=== PATIENT | male | born 2000 | race Caucasian/White ===

== ENCOUNTER 2023-05-20 14:25 | Outpatient (OUT) | payer OTHER, SELFPAY ==
[2023-05-20 15:00] LABS: Basophils Percent Auto 0.6 % (0.2-2.0); Eosinophils Absolute Auto 0.2 10^3/uL (0.0-0.7); Hematocrit 42.9 % (42.0-54.0); Immature Granulocytes Abs Auto 0.02 10^3/uL (0.00-0.03); Immature Granulocytes Pct Auto 0.3 % (0.0-0.5); Lymphocytes Absolute Auto 2.6 10^3/uL (1.2-3.8); Lymphocytes Percent Auto 40.5 % (20.5-60.0); Mean Corpuscular Hemoglobin 30.7 pg (25.9-34.0); Mean Corpuscular Volume 87.9 fL (80.0-94.0); Mean Platelet Volume 9.8 fL (9.5-13.5); Monocytes Absolute Auto 0.5 10^3/uL (0.3-0.8); Monocytes Percent Auto 7.7 % (1.7-12.0); Neutrophils Percent Auto 47.9 % (43.0-75.0); Platelet Count 193 10^3/uL (150-450); Red Blood Count 4.88 10^6/uL (4.70-6.10); Red Cell Distribution Width 11.9 % (11.0-15.0); White Blood Count 6.3 10^3/uL (4.0-11.0)
--- NOTE | 2023-05-20 15:01 | P.GSHP_ITS ---
History of Present Illness History of Present Illness Chief complaint: Chronic Sinusitis Narrative: Patient presents for preadmission testing. The patient states he's had multiple episodes of sinus infections and chronic Headache and congestion. He denies fever, cough, nausea, vomiting, difficulty swallowing, or any other complaints. Review of Systems ROS Narrative REVIEW OF SYSTEMS: Negative except as stated in HPI, ten or more systems reviewed. Constitutional: No fever , chills, weakness ENT: No sore throat or epistaxis Cardiovascular: No edema, chest pain, palpitations, or activity intolerance Respiratory: No shortness of breath, cough, or wheezing Musculoskeletal: No joint pain or swelling Gastrointestinal: No abdominal pain, constipation, diarrhea, or vomiting Genitourinary: No dysuria or hematuria Neurological: No numbness, tingling, weakness, or headache Psychiatric: No mood changes PFSH PFSH Medical History (Updated 05/20/23 @ 14:47 by Marion Castillo NP) Anxiety ?F41.9 - Anxiety disorder, unspecified (ICD-10) Chronic sinusitis ?J32.9 - Chronic sinusitis, unspecified (ICD-10) Depression ?F32.A - Depression, unspecified (ICD-10) Headache ?R51.9 - Headache, unspecified (ICD-10) Low testosterone ?R79.89 - Other specified abnormal findings of blood chemistry (ICD-10) Pneumonia ?J18.9 - Pneumonia, unspecified organism (ICD-10) Seasonal allergies ?J30.2 - Other seasonal allergic rhinitis (ICD-10) Surgical History (Updated 05/20/23 @ 14:47 by Marion Castillo NP) History of myringotomy ?Z98.890 - Other specified postprocedural states (ICD-10) History of tonsillectomy and adenoidectomy ?Z90.89 - Acquired absence of other organs (ICD-10) History of wisdom tooth extraction ?K08.409 - Partial loss of teeth, unspecified cause, unspecified class (ICD- 10) Family History (Updated 05/20/23 @ 14:47 by Marion Castillo NP) Other Family history of bone cancer Family history of diabetes mellitus Family history of hypertension Social History (Updated 05/20/23 @ 14:44 by Marion Castillo NP) Within the past year, how often did you have a drink containing alcohol: 2-3 times a week Smoking status: Never smoker Non-prescribed substance use: denies use 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 Highest level of school completed/degree received: Associate degree: academic program Meds Home Medications and Allergies Home Medications Medication Instructions Recorded Confirmed Type sertraline 150 mg capsule 150 mg PO DAILY 05/20/23 05/20/23 History Allergies Allergy/AdvReac Type Severity Reaction Status Date / Time No Known Drug Allergies Allergy Verified 05/20/23 14:42 Exam Narrative Exam Narrative: Constitutional: Awake, alert, comfortable, well-appearing, nontoxic, interactive, vital signs as charted Head: Normocephalic, atraumatic Eyes: Conjunctiva and lids normal to inspection, pupils normal ENT: Tympanic membranes pearly guillen, nonerythematous, noninjected, naris patent, posterior oropharynx clear, oral mucosa moist Neck: Supple, normal appearance, normal range of motion, no meningeal signs, no lymphadenopathy Respiratory: No respiratory distress, breath sounds clear Cardiovascular: Regular rate and rhythm, strong and regular heart tones Musculoskeletal: Normal gait, no swelling or edema Skin: No rashes or induration, no lesions, only visible skin inspected Neuro: No neurological deficits, normal sensation Psychiatric: Oriented ?3, normal affect Assessment and Plan Assessment and Plan (1) Chronic sinusitis: Plan Left middle meatus antrostomy scheduled with Dr. Grissom 06/04/2023.
[2023-05-20 15:20] LABS: INR 1.03; Partial Thromboplastin Time 29.1 sec (22.3-36.2); Prothrombin Time 10.9 sec (9.0-11.6)
== END 2023-05-20 14:26 | disposition home or self-care (01) ==
LOC: PST 14:27
PROVIDERS: PCP Family Medicine; Visit Provider Otolaryngology
DX: J32.0 Chronic maxillary sinusitis (principal); Z01.812 Encounter for preprocedural laboratory examination
CPT/HCPCS: 85025; 85610; 85730; G0463

== ENCOUNTER 2023-06-04 06:31 | Day surgery (SDC) | payer OTHER, SELFPAY ==
[2023-05-20 14:56] VITALS: BP 131/85; PULSE 74; RESP 16; TEMP 36.3; O2SAT 97; BMI 34.6
[2023-06-04] VITALS (19 sets, daily range): BP systolic 143–168; BP diastolic 96–113; PULSE 62–83; RESP 9–18; TEMP 36.5; O2SAT 96–100; BMI 33.8
--- NOTE | 2023-06-04 | OP_ITS ---
OPERATION DATE: ??06/04/2023 PRIMARY CARE PHYSICIAN:? Sarika Emery M.D. SURGEON:? Guillermina Grissom M.D. PREOPERATIVE DIAGNOSIS:?? Chronic left maxillary sinusitis. POSTOPERATIVE DIAGNOSIS:? Chronic left maxillary sinusitis. PROCEDURE:? Left maxillary antrostomy. ANESTHESIA:? General endotracheal. COMPLICATIONS:? None. FINDINGS:? Large left accessory in the sinus ostium and mucoid fluid filled left maxillary sinus. INDICATIONS:? This 22-year-old man presented with chronic sinusitis, unresponsive to aggressive medical management. PROCEDURE:? Patient identified in the holding area and taken to the OR where he was placed in the supine position.? After induction of general endotracheal anesthesia, the table was turned, the head elevated 20 degrees, and the face draped in a sterile fashion.? Afrin soaked pledgets were placed in the left nose and after waiting adequate time for decongestion, the nose was copiously irrigated.? The left nose was then approached with the nasal endoscope and lidocaine 1% with 1:100,000 epinephrine injected into the lateral nasal wall, and the Afrin was replaced.? After waiting adequate time for hemostasis, the Afrin pledgets were removed.? A curved scissor to the right was used to incise the lower portion of the middle turbinate, and the patient was then found to have a large accessory maxillary sinus ostium.? Using back biting and side biting forceps, the accessory ostium was opened anteriorly to include the natural ostium of the maxillary sinus.? The posterior root of the middle turbinate was then prophylactically cauterize to minimize the risk of postoperative bleeding, and the patient was awakened and taken to the recovery room in good condition. ISSAC
[2023-06-04] MEDS: LACTATED RINGER'S SOLUTION 1,000 ML 50 ML IV (06:56)
[2023-06-04] MEDS: LIDOCAINE HCL 1%-EPINEPHRINE 1:100,000 20 ML MDV INJ (08:00)
--- NOTE | 2023-06-04 08:45 | PC.NURSE ---
Delfino at [facility] administering blood pressure medications and monitoring patient with elevated blood pressure. presidex and lopressor given by edlfino macdonald at bedside in pacu
--- NOTE | 2023-06-04 08:59 | PC.NURSE ---
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 will continue to monitor blood pres for another 1/2 hour.
--- NOTE | 2023-06-04 09:07 | PC.NURSE ---
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 PATIENT IS RESTING COMFORTABLE AT THIS TIME.
== END 2023-06-04 10:07 | disposition home or self-care (01) ==
PROVIDERS: PCP Family Medicine; Visit Provider Otolaryngology
PROC: (CPT 160; principal; 2023-06-04 07:30)
DX: J32.0 Chronic maxillary sinusitis (principal); F41.9 Anxiety disorder, unspecified; F32.A Depression, unspecified; Z87.01 Personal history of pneumonia (recurrent)
CPT/HCPCS: 31267; 36415; 88305; 88311; J2704